=== PATIENT | female | born 1990 | race Caucasian/White ===

== ENCOUNTER → 2017-01-19 | Outpatient (CLI) | payer OTHER ==
[2017-01-19 12:56] VITALS: BP 124/81
== END ==
LOC: MHUC 12:26
PROVIDERS: ATTEND Physician Assistant
DX: N30.01 Acute cystitis with hematuria (principal); J00 Acute nasopharyngitis [common cold]; Z3A.09 9 weeks gestation of pregnancy
CPT/HCPCS: 81002; 99213